=== PATIENT | male | born 1960 | race Caucasian/White ===

== ENCOUNTER → 2021-02-26 | Outpatient (CLI) | payer OTHER ==
--- NOTE | 2021-02-26 14:50 | Diagnostic Imaging Report ---
PROCEDURE: CT abdomen without contrast. TECHNIQUE: Multiple contiguous axial images were obtained through the abdomen without the use of intravenous contrast. Auto Exposure Controls were utilized during the CT exam to meet ALARA standards for radiation dose reduction. INDICATION: Order states evaluate liver cyst. FINDINGS: Noncontrasted exam. No cysts are demonstrated in the liver. Gallbladder is not dilated. Bile ducts appear normal. Pancreas and spleen are normal. The adrenal glands and kidneys appear normal. Aorta is atherosclerotic without evidence of aneurysm. The stomach and small bowel are not distended. The colon where visualized shows normal stool and gas pattern. There are diverticuli in the splenic flexure. Sagittal reformatted images show good alignment of the thoracolumbar spine with good preservation of body height. IMPRESSION: 1. No liver lesions are demonstrated on noncontrasted exam. 2. There is diverticulosis of the splenic flexure. The remainder of the abdomen visualized appears normal. Dictated by: Dictated on workstation # [id number]
== END ==
LOC: RAD FS 10:50
PROVIDERS: ATTEND Nurse Practitioner Family
DX: K57.30 Diverticulosis of large intestine without perforation or abscess without bleeding (principal)
CPT/HCPCS: 74150

== ENCOUNTER → 2021-03-17 | Outpatient (CLI) | payer OTHER ==
[~2021-03-17] MED LIST: CATHETER FLUSH 10 ML SYR IV PRN; HOLD METFORMIN - RECEIVED CONTRAST 20 ML VIAL IV SCH; IOHEXOL 350 MG/ML 100 ML (OMNIPAQUE 350) VIAL IV ONE; NS 100 ML (IVPB) BAG IV ONE
[2021-03-17 09:45] LABS: BUN/CREATININE RATIO 12; CALCIUM 9.2 MG/DL (8.5-10.1); CARBON DIOXIDE 25 MMOL/L (21-32); CHLORIDE 104 MMOL/L (98-107); CREATININE SERUM 0.93 MG/DL (0.60-1.30); GFR ESTIMATED > 60; GLUCOSE 120 MG/DL (70-105); POTASSIUM 4.3 MMOL/L (3.6-5.0); SODIUM 139 MMOL/L (135-145)
[2021-03-17 09:47] LABS: ALANINE AMINOTRANSFERASE 105 U/L (0-55); ALBUMIN 4.2 GM/DL (3.2-4.5); ALKALINE PHOSPHATASE 115 U/L (40-136); BILIRUBIN,TOTAL 0.6 MG/DL (0.1-1.0); TOTAL PROTEIN 7.9 GM/DL (6.4-8.2)
--- NOTE | 2021-03-17 14:11 | Diagnostic Imaging Report ---
EXAMINATION: CT abdomen with intravenous contrast. TECHNIQUE: Multiple contiguous axial images were obtained through the abdomen after the administration of intravenous contrast. All CT scans use one or more of the following dose optimizing techniques: automated exposure control, MA and/or KvP adjustment based on patient size and exam type or iterative reconstruction. HISTORY: Liver cyst. COMPARISON: 02/26/2021 FINDINGS: Limited views of the lower thorax show an aortic valve replacement. Liver surface is mildly nodular suggestive of cirrhosis. No focal liver lesions are seen. There is no biliary ductal dilation. Gallbladder is normal. Pancreas is normal. Spleen is normal. Adrenal glands are normal. The kidneys are normal. There is no hydronephrosis. Visualized bowel is normal in caliber without obstruction or inflammation. No free fluid or air. No abdominal lymphadenopathy. Aorta is normal in caliber without aneurysm. There are no suspicious osseous lesions. IMPRESSION: 1. Liver surface is mildly nodular suggestive of cirrhosis. No focal liver lesions are seen. Dictated by: Dictated on workstation # [id number]
== END ==
LOC: RAD FS 08:34
PROVIDERS: ATTEND Nurse Practitioner Family
DX: K76.89 Other specified diseases of liver (principal)
CPT/HCPCS: 36415; 74160; 80053

== ENCOUNTER → 2023-02-01 | Outpatient (CLI) | payer OTHER ==
[~2023-02-01] MED LIST changes: -CATHETER FLUSH 10 ML SYR IV PRN; -HOLD METFORMIN - RECEIVED CONTRAST 20 ML VIAL IV SCH; -IOHEXOL 350 MG/ML 100 ML (OMNIPAQUE 350) VIAL IV ONE; -NS 100 ML (IVPB) BAG IV ONE; +RT-ALBUTEROL SULF 2.5 MG/3 ML PRE-MIX VIAL INH ONE
== END ==
LOC: RT 10:08
PROVIDERS: ATTEND Nurse Practitioner Family
DX: E66.01 Morbid (severe) obesity due to excess calories (principal); R06.02 Shortness of breath
CPT/HCPCS: 94060; 94726; 94729